=== PATIENT | male | born 2000 | race Two or more races ===

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

== ENCOUNTER 2024-10-24 23:36 | Emergency (ER) | payer BC ==
[~2024-10-24] VITALS: Ht 177.8 cm; Wt 82.1 kg
[~2024-10-24 23:36] MED LIST: CEPH500C2 PO; HYDR-4209 PO
[2024-10-25 00:57] LABS: CALCIUM 9.6 mg/dL (8.5-10.1); CARBON DIOXIDE 32 mmol/L (21-32); CHLORIDE 106 mmol/L (98-107); CREATININE 0.8 mg/dL (0.6-1.3); GLUCOSE 91 mg/dL (74-106); POTASSIUM 3.8 mmol/L (3.5-5.1); SODIUM SERUM 144 mmol/L (136-145); UREA NITROGEN, BLOOD 20 mg/dL (7-18)
[2024-10-25 00:59] LABS: BASOPHILS % (AUTO) 0.7 % (0.0-2.0); EOSINOPHILS # (AUTO) 0.1 K/uL (0.0-0.7); EOSINOPHILS % (AUTO) 2.1 % (0.0-7.0); LYMPHOCYTES # (AUTO) 2.7 K/uL (0.8-4.8); LYMPHOCYTES % (AUTO) 39.9 % (20.5-51.5); MEAN CORPUSCULAR HEMOGLOBIN 28.4 uug (23.8-33.4); MEAN CORPUSCULAR HGB CONC 34 g/dL (32.5-36.3); MEAN CORPUSCULAR VOLUME 83.2 fL (73.0-96.2); MONOCYTES # (AUTO) 0.9 K/uL (0.1-1.30); MONOCYTES % (AUTO) 12.7 % (0.0-11.0); NEUTROPHILS # (AUTO) 3.1 K/uL (1.8-8.9); NEUTROPHILS % (AUTO) 44.6 % (38.5-71.5); PLATELET COUNT (AUTO) 300 K/uL (152-348); RED BLOOD CELL COUNT(AUTO) 5.29 MIL/uL (4.06-5.63); RED CELL DISTRIBUTION WIDTH 12.4 % (12.1-16.2); WHITE BLOOD COUNT (AUTO) 6.9 K/uL (3.6-10.2)
[2024-10-25 01:01] LABS: MAGNESIUM 2.1 mg/dL (1.8-2.4)
[2024-10-25 01:04] LABS: DIFFERENTIAL COMMENT 1
[2024-10-25 01:06] LABS: ALANINE AMINOTRANSFERASE 22 U/L (16-63); ALBUMIN 4.4 g/dL (3.4-5.0); ALKALINE PHOSPHATASE 106 U/L (50-136); ASPARTATE AMINOTRANSFERASE 9 U/L (15-37); BILIRUBIN,DIRECT 0.2 mg/dL (0.0-0.2)
[2024-10-25 01:13] LABS: THYROID STIMULATING HORMONE 2.666 mIU/mL (0.358-3.740)
[2024-10-25 02:37] VITALS: BP 125/85; TEMP 98.1; O2SAT 98
== END 2024-10-25 02:38 | disposition home or self-care (01) ==
LOC: ER 23:44
DX: I49.3 Ventricular premature depolarization (principal); R00.2 Palpitations; R06.02 Shortness of breath; R07.89 Other chest pain; Z87.19 Personal history of other diseases of the digestive system
CPT/HCPCS: 36415; 83735; 84443; 84484; 85025; A4606; A4663